=== PATIENT | male | born 1980 | race Caucasian/White ===

== ENCOUNTER 2024-12-10 08:15 | Outpatient (CLI) | payer BC, SELFPAY | END 2024-12-10 08:16 | disposition home or self-care (01) | PROVIDERS: Visit Provider Internal Medicine | DX: E78.5 Hyperlipidemia, unspecified (principal) | CPT/HCPCS: 80053; 80061 ==

== ENCOUNTER 2025-01-12 09:27 | Outpatient (CLI) | payer BC, SELFPAY ==
--- NOTE | 2025-01-12 10:38 | P.ANES_ITS ---
Anesthesia Charges Start Date/Time Anesthesia Start Date: 01/12/25 Anesthesia Start Time: 10:15 Stop Date/Time Anesthesia Stop Date: 01/12/25 Anesthesia Stop Time: 10:37 Coding CPT Codes CPT Codes: ANES LWR INTST SCR COLSC - [id number] ([id number]) P2 - PATIENT W/MILD SYST DISEASE, QK - LADLE WATCHER 2-4 CNCRNT ANES PROC, QX - SECRETARIAL STENOGRAPHER SVC W/ MD MED DIRECTION
--- NOTE | 2025-01-12 10:38 | W.ANESCHARGE ---
Anesthesia Charges Start Date/Time Anesthesia Start Date: 01/12/25 Anesthesia Start Time: 10:15 Stop Date/Time Anesthesia Stop Date: 01/12/25 Anesthesia Stop Time: 10:37 Coding CPT Codes CPT Codes: ANES LWR INTST SCR COLSC - [id number] ([id number]) P2 - PATIENT W/MILD SYST DISEASE, QK - MALL PLANT CARETAKER 2-4 CNCRNT ANES PROC, QX - COIL TIER SVC W/ MD MED DIRECTION
--- NOTE | 2025-01-12 11:40 | P.ANES_ITS ---
Anesthesia Charges Start Date/Time Anesthesia Start Date: 01/12/25 Anesthesia Start Time: 10:15 Stop Date/Time Anesthesia Stop Date: 01/12/25 Anesthesia Stop Time: 10:37 Coding CPT Codes CPT Codes: ANES LWR INTST SCR COLSC - [id number] ([id number]) P2 - PATIENT W/MILD SYST DISEASE, QK - CAPTION WRITER 2-4 CNCRNT ANES PROC, QX - LEAD PRESSER SVC W/ MD MED DIRECTION
--- NOTE | 2025-01-12 11:40 | W.ANESCHARGE ---
Anesthesia Charges Start Date/Time Anesthesia Start Date: 01/12/25 Anesthesia Start Time: 10:15 Stop Date/Time Anesthesia Stop Date: 01/12/25 Anesthesia Stop Time: 10:37 Coding CPT Codes CPT Codes: ANES LWR INTST SCR COLSC - [id number] ([id number]) P2 - PATIENT W/MILD SYST DISEASE, QK - RESERVATIONS CLERK 2-4 CNCRNT ANES PROC, QX - INTERNAL CARVER SVC W/ MD MED DIRECTION
== END 2025-01-12 09:28 | disposition home or self-care (01) ==
LOC: OP CLINIC 09:29
PROVIDERS: Visit Provider Internal Medicine
DX: Z12.11 Encounter for screening for malignant neoplasm of colon (principal); Z80.0 Family history of malignant neoplasm of digestive organs; K57.30 Diverticulosis of large intestine without perforation or abscess without bleeding
CPT/HCPCS: 00812; 45378; J2704